=== PATIENT | male | born 1975 | race Caucasian/White ===

== ENCOUNTER 2016-09-13 12:58 | Inpatient (IN) | payer SELFPAY ==
[~2016-09-13] VITALS: Ht 182.9 cm; Wt 91.0 kg
[2016-09-13] MEDS ORDERED: SODIUM CHLORIDE 0.9% 1,000 ML IVB ONE (13:50)
[2016-09-13 14:00] LABS: Basophils # (auto) 0 uL; Basophils % (auto) 0.2 % (0.0-2.0); Eosinophils # (auto) 0 uL; Hematocrit 49.9 % (41.0-53.0); Hemoglobin 16.9 g/dL (13.5-17.5); Lymphocytes # (auto) 1.2 uL; Lymphocytes % (auto) 6.1 % (10.0-50.0); Mean Corpuscular Hemoglobin 29.2 pg (28.0-32.0); Mean Corpuscular Hgb Conc. 33.8 g/dL (32.0-36.0); Mean Corpuscular Volume 86.4 fL (80.0-100.0); Mean Platelet Volume 9.4 fL (7.4-10.4); Monocytes # (auto) 1.4 uL; Monocytes % (auto) 7.2 % (0.0-12.0); Neutrophils # (auto) 16.5 uL; Neutrophils % (auto) 86.5 % (37.0-80.0); Platelet Count (auto) 233 10^3/uL (140-450); Red Cell Distribution Width 14.4 % (11.6-16.0); White Blood Cell 19.1 10^3/uL (4.4-10.8)
[2016-09-13] MEDS ORDERED: LEVOFLOXACIN 750MG 150 ML IV ONE (14:00)
[2016-09-13] MEDS ORDERED: PIPERACILLIN-TAZOB 3.375GM 100 ML IV ONE (14:00)
[2016-09-13] MEDS ORDERED: MORPHINE SULFATE 4 MG/ML SYRG IV ONE (14:00)
[2016-09-13] MEDS ORDERED: ONDANSETRON HCL 4 MG/2 ML VIAL IV ONE (14:00)
[2016-09-13 14:08] LABS: INR 1.14 (0.9-1.15); Partial Thromboplastin Time 26.5 sec (22.64-33.71); Prothrombin Time 12.3 sec (9.37-12.3)
[2016-09-13 14:23] LABS: Albumin 4.3 g/dL (3.4-5.0); Bilirubin, Total 0.8 mg/dL (0.2-1.0); Calcium 9.6 mg/dL (8.5-10.1); Potassium 3.5 mmol/L (3.5-5.1); Total Protein 8.8 g/dL (6.4-8.2)
[2016-09-13] MEDS ORDERED: D5W/SOD CHL 0.45%/KCL 20MEQ 1,000 ML IV ONE (15:15)
[2016-09-13] MEDS ORDERED: metroNIDAZOLE 500MG/100ML 100 ML IV ONE (15:15)
[2016-09-13] MEDS ORDERED: NICOTINE 21MG/24 HR TOPICAL PATCH TD ONE (18:00)
[2016-09-13] MEDS ORDERED: ONDANSETRON HCL 4 MG/2 ML VIAL IV PRN (18:00)
[2016-09-13] MEDS ORDERED: MORPHINE SULF INJ 2 MG/ML SYRINGE 1ML IV PRN (18:00)
[2016-09-13 18:28] LABS: Urine Bilirubin Negative (Negative); Urine Blood Negative /uL (Negative); Urine Color Yellow (Yellow); Urine Glucose Normal (Normal); Urine Ketone Negative (Negative); Urine Mucus FEW (None Seen); Urine Nitrite Negative (Negative); Urine RBC 2 /hpf (0 - 3); Urine Urobilinogen Normal (Negative); Urine pH 6.5 (5.0-8.0)
[2016-09-13] MEDS: SODIUM CHLORIDE 0.9% 1,000 ML IV SCH (18:42)
[2016-09-13 21:45] VITALS: BP 115/65
[2016-09-13] MEDS: metroNIDAZOLE 500MG/100ML 100 ML IV SCH (22:00)
[2016-09-14] MEDS: SODIUM CHLORIDE 0.9% 1,000 ML IV SCH ×3 (02:13→22:12)
[2016-09-14 04:56] VITALS: BP 92/41
[2016-09-14] MEDS: metroNIDAZOLE 500MG/100ML 100 ML IV SCH ×3 (05:31→22:08)
[2016-09-14 06:28] LABS: Basophils # (auto) 0 uL; Basophils % (auto) 0.3 % (0.0-2.0); Eosinophils # (auto) 0.1 uL; Hematocrit 45.8 % (41.0-53.0); Hemoglobin 15.5 g/dL (13.5-17.5); Lymphocytes # (auto) 2.8 uL; Lymphocytes % (auto) 23.8 % (10.0-50.0); Mean Corpuscular Hemoglobin 29.2 pg (28.0-32.0); Mean Corpuscular Hgb Conc. 33.9 g/dL (32.0-36.0); Mean Corpuscular Volume 86.1 fL (80.0-100.0); Mean Platelet Volume 9.6 fL (7.4-10.4); Monocytes # (auto) 1.3 uL; Monocytes % (auto) 11.4 % (0.0-12.0); Neutrophils # (auto) 7.4 uL; Neutrophils % (auto) 63.5 % (37.0-80.0); Platelet Count (auto) 198 10^3/uL (140-450); Red Cell Distribution Width 14.7 % (11.6-16.0); White Blood Cell 11.7 10^3/uL (4.4-10.8)
[2016-09-14] MEDS ORDERED: NEOSTIGMINE 1 MG/ML INJ (10mg/10ML VIAL) ONE (06:45)
[2016-09-14] MEDS ORDERED: ROCURONIUM 10MG/ML 10ML VIAL IV ONE (06:45)
[2016-09-14] MEDS ORDERED: MEPERIDINE HCL (50 MG/ML) 1 ML VIAL ONE (06:45)
[2016-09-14] MEDS ORDERED: KETOROLAC TROMETH 60MG/2ML VIAL IM ONE (06:45)
[2016-09-14] MEDS ORDERED: SODIUM CHLORIDE LOCK 20 ML ONE (06:45)
[2016-09-14] MEDS ORDERED: PROPOFOL 10 MG/ML 20 ML IV ONE (06:45)
[2016-09-14] MEDS ORDERED: fentaNYL CITRATE 100 MCG/2 ML VL ONE (06:45)
[2016-09-14] MEDS ORDERED: MIDAZOLAM HCL 1MG/1ML-2 ML VIAL ONE (06:45)
[2016-09-14] MEDS ORDERED: GLYCOPYRROLATE 0.2 MG/ML 1ML VIAL ONE (06:45)
[2016-09-14 06:48] LABS: Albumin 3.7 g/dL (3.4-5.0); BUN/Creatinine Ratio 13.8; Potassium 3.8 mmol/L (3.5-5.1)
[2016-09-14 06:51] LABS: Bilirubin, Total 0.9 mg/dL (0.2-1.0); Total Protein 7.5 g/dL (6.4-8.2)
[2016-09-14] MEDS ORDERED: POVIDONE IODINE 10 % TOPICAL OINT 30GM TOP ONE (06:53)
[2016-09-14] MEDS ORDERED: ceFAZolin 1GM/50ML D5W 0 ML IV ONE (07:07)
[2016-09-14] MEDS ORDERED: METOCLOPRAMIDE HCL 5MG/ml INJ 2ml VIAL IV ONE (08:15)
[2016-09-14] MEDS ORDERED: KETOROLAC TROMETH 30 MG/ML 1ML VIAL IV ONE (08:15)
[2016-09-14] MEDS ORDERED: HYDROmorphone HCL 2 MG/ML VL IV PRN ×2 (08:15→08:45)
[2016-09-14] MEDS ORDERED: ONDANSETRON HCL 4 MG/2 ML VIAL IV PRN (08:45)
[2016-09-14 09:36] VITALS: BP 105/65
[2016-09-14] MEDS: LEVOFLOXACIN 500MG 100 ML IV SCH (09:44)
[2016-09-14] MEDS: NICOTINE 21MG/24 HR TOPICAL PATCH TD SCH (10:00)
[2016-09-14] MEDS: HYDROcodone-ACET 5/325MG TAB PO PRN ×2 (10:00→20:20)
[2016-09-14] MEDS ORDERED: LEVOFLOXACIN 500MG 100 ML IV SCH (10:00)
[2016-09-14 13:13] VITALS: BP 108/50
[2016-09-14 17:00] VITALS: BP 105/55
[2016-09-14 21:47] VITALS: BP 120/57
[2016-09-15] MEDS: HYDROcodone-ACET 5/325MG TAB PO PRN (01:58)
[2016-09-15] MEDS: SODIUM CHLORIDE 0.9% 1,000 ML IV SCH ×2 (02:00→10:00)
[2016-09-15 04:41] VITALS: BP 105/52
[2016-09-15] MEDS: metroNIDAZOLE 500MG/100ML 100 ML IV SCH (05:49)
[2016-09-15 06:20] LABS: Basophils # (auto) 0 uL; Basophils % (auto) 0.2 % (0.0-2.0); Eosinophils # (auto) 0.1 uL; Eosinophils % (auto) 0.6 % (0.0-7.0); Hematocrit 41.6 % (41.0-53.0); Hemoglobin 14.3 g/dL (13.5-17.5); Lymphocytes # (auto) 2.6 uL; Mean Corpuscular Hemoglobin 29.8 pg (28.0-32.0); Mean Corpuscular Hgb Conc. 34.5 g/dL (32.0-36.0); Mean Corpuscular Volume 86.6 fL (80.0-100.0); Mean Platelet Volume 9.5 fL (7.4-10.4); Monocytes % (auto) 8.3 % (0.0-12.0); Neutrophils # (auto) 8.6 uL; Neutrophils % (auto) 69.9 % (37.0-80.0); Platelet Count (auto) 211 10^3/uL (140-450); Red Cell Distribution Width 14.1 % (11.6-16.0); White Blood Cell 12.4 10^3/uL (4.4-10.8)
[2016-09-15 06:59] LABS: BUN/Creatinine Ratio 16.2; Calcium 9.3 mg/dL (8.5-10.1); Potassium 4.2 mmol/L (3.5-5.1)
[2016-09-15 08:44] VITALS: BP 105/55
[2016-09-15] MEDS: NICOTINE 21MG/24 HR TOPICAL PATCH TD SCH (10:00)
[2016-09-15] MEDS: LEVOFLOXACIN 500MG 100 ML IV SCH (10:21)
[2016-09-15 11:20] VITALS: BP 105/55
== END 2016-09-15 12:48 | disposition home or self-care (01) | DRG 341 ==
LOC: ER 13:12 → OVERFLOW 13:13 → CENTRAL 21:33
PROVIDERS: ADMIT Internal Medicine; ATTEND Internal Medicine
PROC: 0DTJ4ZZ Resection of Appendix, Percutaneous Endoscopic Approach (ICD-10-PCS; principal; 2016-09-14 07:13)
DX: K35.80 Unspecified acute appendicitis (principal); J18.1 Lobar pneumonia, unspecified organism; F17.210 Nicotine dependence, cigarettes, uncomplicated; N20.0 Calculus of kidney; K43.2 Incisional hernia without obstruction or gangrene; Z90.49 Acquired absence of other specified parts of digestive tract; Z88.0 Allergy status to penicillin
CPT/HCPCS: 36415; 71010; 74176; 80048; 80053; 81001; 83690; 85025; 85610; 85730; 86850; 86900; 86901; 93005; 94761; 96361; 96365; 96367; 96375; J0690; J1885; J1956; J2250; J2405; J2704; J3490

== ENCOUNTER 2016-09-16 18:08 | Emergency (ER) | payer SELFPAY ==
[2016-09-16 18:22] VITALS: BP 111/63
== END 2016-09-16 22:40 | disposition left against medical advice (07) ==
LOC: ER 18:08
DX: M54.5 Low back pain (principal); Z90.89 Acquired absence of other organs; Z53.21 Procedure and treatment not carried out due to patient leaving prior to being seen by health care provider

== ENCOUNTER 2016-09-17 14:24 | Emergency (ER) | payer MEDICAID, OTHER ==
[2016-09-17 15:15] LABS: Basophils # (auto) 0 uL; Basophils % (auto) 0.4 % (0.0-2.0); Eosinophils # (auto) 0.1 uL; Eosinophils % (auto) 1.4 % (0.0-7.0); Hematocrit 48.9 % (41.0-53.0); Hemoglobin 16.5 g/dL (13.5-17.5); Lymphocytes # (auto) 2.7 uL; Lymphocytes % (auto) 28.3 % (10.0-50.0); Mean Corpuscular Hemoglobin 29.2 pg (28.0-32.0); Mean Corpuscular Hgb Conc. 33.8 g/dL (32.0-36.0); Mean Corpuscular Volume 86.4 fL (80.0-100.0); Mean Platelet Volume 8.6 fL (7.4-10.4); Monocytes # (auto) 0.6 uL; Monocytes % (auto) 6.4 % (0.0-12.0); Neutrophils % (auto) 63.5 % (37.0-80.0); Platelet Count (auto) 269 10^3/uL (140-450); White Blood Cell 9.5 10^3/uL (4.4-10.8)
[2016-09-17 15:35] LABS: Albumin 4.1 g/dL (3.4-5.0); BUN/Creatinine Ratio 19.3; Bilirubin, Total 0.6 mg/dL (0.2-1.0); Calcium 9.2 mg/dL (8.5-10.1); Potassium 3.7 mmol/L (3.5-5.1); Total Protein 8.2 g/dL (6.4-8.2)
[2016-09-17 19:19] VITALS: BP 111/71
[2016-09-17] MEDS ORDERED: ONDANSETRON HCL 4 MG/2 ML VIAL IM ONE (20:00)
[2016-09-17] MEDS ORDERED: HYDROmorphone HCL 2 MG/ML VL IM ONE (20:00)
[2016-09-17 20:37] LABS: Urine Bilirubin Negative (Negative); Urine Blood Negative /uL (Negative); Urine Color Yellow (Yellow); Urine Glucose Normal (Normal); Urine Nitrite Negative (Negative); Urine RBC 3 /hpf (0 - 3); Urine Urobilinogen Normal (Negative); Urine pH 5.5 (5.0-8.0)
[2016-09-17 20:38] LABS: Urine Ketone 1+ (Negative)
== END 2016-09-17 20:25 | disposition home or self-care (01) ==
LOC: ER 14:24
DX: M54.5 Low back pain (principal); G89.18 Other acute postprocedural pain; Z90.89 Acquired absence of other organs; Z90.49 Acquired absence of other specified parts of digestive tract; Z88.0 Allergy status to penicillin
CPT/HCPCS: 36415; 80053; 81001; 85025; 96372; 99284; J1170; J2405